=== PATIENT | male | born 1975 | race Hispanic/Latino ===

== ENCOUNTER 2017-02-03 23:02 | Emergency (ER) | payer OTHER ==
[2017-02-03 23:05] VITALS: BP 120/78; PULSE 83; RESP 16; TEMP 96.7; O2SAT 97
[2017-02-03 23:06] VITALS: BMI 26.4
[2017-02-03] MEDS ORDERED: Glucagon Recombinant 1 mg Inj IV ONE (23:21)
[2017-02-04 00:06] LABS: BASO % 0.3 % (0.0-2.0); EOS # 0.2 K/uL (0.0-0.7); EOS % 2.3 % (0.0-4.0); HEMATOCRIT 44.2 % (35.0-51.0); LYMPH # 2.3 K/uL (1.0-4.3); LYMPH % 23.4 % (20.0-40.0); MEAN CELL VOLUME 90.1 fl (80.0-94.0); MEAN CORPUSCULAR HEMOGLOBIN 30.4 pg (27.0-31.0); MEAN CORPUSCULAR HGB CONC 33.7 g/dL (33.0-37.0); MEAN PLATELET VOLUME 9.7 fl (7.2-11.7); MONO # 0.9 K/uL (0.0-0.8); MONO % 9.6 % (0.0-10.0); NEUT # 6.2 K/uL (1.8-7.0); NEUT % 64.4 % (50.0-75.0); NRBC % 0.2 % (0.0-0.0); RED CELL DISTRIBUTION WIDTH 12.4 % (11.5-14.5); WHITE BLOOD COUNT 9.6 K/uL (4.8-10.8)
[2017-02-04 00:16] LABS: BLOOD UREA NITROGEN 13 mg/dl (9-20); CALCIUM 9.6 mg/dL (8.4-10.2); CARBON DIOXIDE 26 mmol/L (22-30); CHLORIDE 104 mmol/L (98-107); GFR AFRICAN-AMERICAN > 60; GLUCOSE,RANDOM 108 mg/dL (75-110); POTASSIUM 3.8 MMOL/L (3.6-5.0); SODIUM 143 mmol/l (132-148)
--- NOTE | 2017-02-04 00:28 | ED PDOC ---
HPI: General Adult Time Seen by Provider: 02/03/17 23:16 Chief Complaint (Nursing): ENT Problem Chief Complaint (Provider): Food in Throat History Per: Patient History/Exam Limitations: no limitations Onset/Duration Of Symptoms: Hrs (x 2) Current Symptoms Are (Timing): Still Present Additional Complaint(s): Sukh is a healthy 41 y/o male who presents to the ED stating that he was eating steak 2 hours ago and feels like there is meat in his throat. He is not able to tolerate liquid or his own lubricant. Patient denies shortness of breath. PMD: Jorje Crowley Past Medical History Reviewed: Historical Data, Nursing Documentation, Vital Signs Vital Signs: Last Vital Signs Temp 96.7 F L 02/03/17 23:05 Pulse 83 02/03/17 23:05 Resp 16 02/03/17 23:05 BP 120/78 02/03/17 23:05 Pulse Ox 97 02/04/17 00:30 - Medical History PMH: No Chronic Diseases - Surgical History Surgical History: No Surg Hx - Family History Family History: States: Unknown Family Hx - Allergies Allergies/Adverse Reactions: Allergies Allergy/AdvReac Type Severity Reaction Status Date / Time No Known Allergies Allergy Verified 02/03/17 23:16 Review of Systems ROS Statement: Except As Marked, All Systems Reviewed And Found Negative ENT: Positive for: Throat Pain (feels like something is stuck) Respiratory: Negative for: Shortness of Breath Physical Exam - Reviewed Nursing Documentation Reviewed: Yes Vital Signs Reviewed: Yes - Physical Exam Appears: Positive for: Non-toxic, No Acute Distress Head Exam: Positive for: ATRAUMATIC, NORMAL INSPECTION, NORMOCEPHALIC Skin: Positive for: Normal Color, Warm, Dry Eye Exam: Positive for: Normal appearance, EOMI, PERRL. Negative for: Nystagmus ENT: Positive for: Normal ENT Inspection Neck: Positive for: Normal, Painless ROM Cardiovascular/Chest: Positive for: Regular Rate, Rhythm. Negative for: Murmur Respiratory: Positive for: Normal Breath Sounds. Negative for: Respiratory Distress Gastrointestinal/Abdominal: Positive for: Normal Exam, Bowel Sounds, Soft. Negative for: Tenderness Back: Positive for: Normal Inspection Extremity: Positive for: Normal ROM. Negative for: Pedal Edema, Deformity Neurologic/Psych: Positive for: Alert, Oriented. Negative for: Motor/Sensory Deficits - Laboratory Results Result Diagrams: 02/03/17 23:44 02/03/17 23:44 - ECG O2 Sat by Pulse Oximetry: 97 (RA) Pulse Ox Interpretation: Normal Medical Decision Making Medical Decision Making: Time: 23:21 Initial Impression: Food impaction Initial Plan: --BMP --CBC --Dilaudid --Glucagon --Reglan --Place patient in left lateral decub and sip carbonated beverage while on hospital monitor 230 Pt. now tolerating PO, states he feels much better, will d/c home with f/u w/ GI as needed. Return precautions given. Scribe Attestation: Documented by Gene Miller, acting as a scribe for Camden Lanier MD Provider Scribe Attestation: All medical record entries made by the Scribe were at my direction and personally dictated by me. I have reviewed the chart and agree that the record accurately reflects my personal performance of the history, physical exam, medical decision making, and the department course for this patient. I have also personally directed, reviewed, and agree with the discharge instructions and disposition. Disposition - Clinical Impression Clinical Impression: Food impaction of esophagus - Patient ED Disposition Is Patient to be Admitted: No - Disposition Referrals: Rk Bardales MD, PhD [Staff Provider] - [facility] [Outside] Disposition: Routine/Home Disposition Time: 02:32 Condition: IMPROVED Instructions: Food Impaction (ED), Glucagon (By injection) Forms: [facility] ([place])
== END 2017-02-04 02:20 | disposition home or self-care (01) ==
LOC: H.ER 23:02
DX: T18.128A Food in esophagus causing other injury, initial encounter (principal)
CPT/HCPCS: 80048; 85025; 96374; 99283; J1170; J1610; J2765